=== PATIENT | male | born 1955 | race Hispanic/Latino ===

== ENCOUNTER 2019-09-16 13:13 | Emergency (ER) | payer MEDICARE ==
[~2019-09-16] VITALS: Ht 172.7 cm; Wt 90.7 kg
== END 2019-09-16 13:39 | disposition home or self-care (01) ==
LOC: ER 13:13
DX: M79.662 Pain in left lower leg (principal); M79.661 Pain in right lower leg; I10 Essential (primary) hypertension; E11.9 Type 2 diabetes mellitus without complications
CPT/HCPCS: 99282